=== PATIENT | female | born 1960 ===

== ENCOUNTER → 2023-01-11 | Outpatient (CLI) | payer BC ==
[2023-01-11 10:25] LABS: Basophils # (auto) 0 10 ^3/uL (0-0.2); Basophils % (auto) 0.8 % (0.0-2.0); Eosinophils # (auto) 0.2 10 ^3/uL (0-0.8); Eosinophils % (auto) 2.4 % (0.0-7.0); Hemoglobin 14.6 g/dL (12.2-16.2); Lymphocytes # (auto) 2.1 10 ^3/uL (0.4-5.4); Lymphocytes % (auto) 33.2 % (10.0-50.0); Mean Corpuscular Hemoglobin 30.6 pg (28.0-32.0); Mean Corpuscular Hgb Conc. 33.2 g/dL (32.0-36.0); Mean Corpuscular Volume 92.1 fL (80.0-100.0); Monocytes # (auto) 0.5 10 ^3/uL (0-1.3); Monocytes % (auto) 7.5 % (0.0-12.0); Neutrophils # (auto) 3.6 10 ^3/uL (1.6-8.6); Neutrophils % (auto) 56.1 % (37.0-80.0); Nucleated Red Blood Cells % 0.1 %; Red Blood Cells 4.78 10^6/uL (4.0-5.20); Red Cell Distribution Width 14.7 % (11.8-14.3); White Blood Cell 6.4 10^3/uL (4.4-10.8)
[2023-01-11 10:45] LABS: Potassium 3.9 mmol/L (3.5-5.1)
[2023-01-11 11:04] LABS: Albumin 3.4 g/dL (3.4-5.0); BUN/Creatinine Ratio 13.4 (10.0-20.0); Bilirubin, Total 0.4 mg/dL (0.2-1.0); Calcium 8.8 mg/dL (8.5-10.1); Total Protein 7.4 g/dL (6.4-8.2)
== END | disposition home or self-care (01) ==
LOC: LAB 09:34
PROVIDERS: ATTEND Student in an Organized Health Care Education/Training Program
DX: E66.01 Morbid (severe) obesity due to excess calories (principal); E55.9 Vitamin D deficiency, unspecified; Q61.2 Polycystic kidney, adult type
CPT/HCPCS: 36415; 80053; 80061; 82274; 82306; 85025

== ENCOUNTER → 2023-03-17 | Outpatient (CLI) | payer BC | END | disposition home or self-care (01) | LOC: LAB 08:37 | PROVIDERS: ATTEND Obstetrics & Gynecology | DX: R87.620 Atypical squamous cells of undetermined significance on cytologic smear of vagina (ASC-US) (principal) | CPT/HCPCS: 88302 ==